=== PATIENT | male | born 1950 | race Caucasian/White ===

== ENCOUNTER 2016-12-12 21:50 | Inpatient (IN) ==
[2016-12-12] MEDS ORDERED: LACTATED RINGERS 500 ML IV STA (22:46)
[2016-12-12] MEDS ORDERED: ONDANSETRON 4 MG/2 ML VIAL IV STA (22:46)
[2016-12-12] MEDS ORDERED: ONDANSETRON 4 MG/2 ML VIAL ONE (22:52)
[2016-12-12 22:54] LABS: Basophils % 0.4 % (0.0-0.8); Eosinophils # 0.1 10*3/uL (0.0-0.87); Eosinophils % 1.2 % (0.00-10.9); Hematocrit 37.9 VOL% (42.0-52.0); Hemoglobin 13.3 GM/DL (14.0-18.0); Immature Granulocytes % 0.4 %; Immature Granulocytes Absolute 0.04 #; Lymphocytes % 47.1 % (21.2-54.2); Mean Corpuscular HGB Conc 35.1 GM/DL (32-36); Mean Corpuscular Hemoglobin 36 PG (27-34); Mean Corpuscular Volume 101.1 FL (87-102); Monocytes # 1.4 10*3/uL (0.11-0.8); Monocytes % 13.1 % (1.7-12.7); Neutrophils % 37.8 % (38.7-73.9); Platelet Count 149 T/CUMM (130-400); Red Blood Count 3.75 MC/CUMM (3.8-5.5); Red Cell Distribution Width 13.2 % (9.3-17.3); White Blood Count 10.5 T/CUMM (4-12)
[2016-12-12 23:00] LABS: PT Patient Result 10.2 SECS; Partial Thromboplastin Time 26.4 SECS (0-40)
[2016-12-12 23:07] LABS: Apearance,Urine CLEAR (Clear); Bilirubin,Urine Negative (Negative); Blood, Urine Negative (Negative); Glucose,Urine (UA) Negative (Negative); Ketones,Urine Negative (Negative); Mucus,Urine Occasional /LPF (Occasional); Nitrite,Urine Negative (Negative); Protein,Urine Negative; RBC,Urine <1 /HPF (0-4); Urine Color Straw (Yellow); Urine Specific Gravity 1.003 (1.001-1.035); Urine Urobilinogen < 2.0 EU/DL (0.2-1.0); WBC,Urine <1 /HPF (0-6)
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
[2016-12-12 23:23] LABS: Barbiturates Screen,Urine Negative (Negative); Benzodiazepines Screen,Urine Negative (Negative); Cannabinoid Screen,Urine Negative (Negative); Opiate Screen,Urine Positive (Negative); Phencyclidine Screen,Urine Negative (Negative)
[2016-12-12 23:30] LABS: Albumin 4.2 G/DL (3.4-5.0); Bilirubin,Total 0.6 MG/DL (0.2-1.0); Calcium 8.4 MG/DL (8.5-10.1); Osmolality,Calculated 279.4 MOS/KG (273-304); Potassium 2.9 MMOL/L (3.5-5.1); Total Protein 6.5 G/DL (6.4-8.3)
[2016-12-12 23:36] LABS: Band Neutrophils 4 % (0-10); Eosinophils 4 % (0-10); Lymphocytes 44 % (20-55); Myelocytes 2 %; Segmented Neutrophils 42 % (50-85)
[2016-12-12 23:37] LABS: Platelet Estimate Adequate; Total Cells Counted 100
[2016-12-13] MEDS ORDERED: THIAMINE INJ 100 MG, FOLIC ACID INJ 1 MG, MAGNESIUM SULF INJ 2 GM, MULTIVITAMIN INJ 10 ... IV ONE (00:10)
[2016-12-13] MEDS ORDERED: POTASSIUM CHLORIDE 20 MEQ TABLET PO STA (00:10)
[2016-12-13] MEDS ORDERED: POTASSIUM CHLORIDE 20 MEQ TABLET PO ONE ×2 (00:35→12:46)
[2016-12-13] MEDS ORDERED: ACETAMINOPHEN 325 MG TABLET PO PRN (00:42)
[2016-12-13] MEDS ORDERED: POLYVINYL ALCOHOL 1.4% OPH SOLN 15 ML BOTTLE LEFT EYE PRN (00:42)
[2016-12-13 00:43] LABS: Troponin I Only < 0.015 NG/ML (0.00-0.045)
[2016-12-13] MEDS ORDERED: ROSUVASTATIN 10 MG TABLET PO SCH ×2 (00:45→09:00)
[2016-12-13] MEDS ORDERED: BISACODYL 5 MG TABLET PO PRN (00:45)
[2016-12-13] MEDS ORDERED: PROMETHAZINE 25 MG/1 ML VIAL IM PRN (00:45)
[2016-12-13] MEDS ORDERED: ONDANSETRON 4 MG/2 ML VIAL IV PRN (00:45)
[2016-12-13] MEDS ORDERED: ALBUTEROL/IPRATROPIUM 3 ML NEB RESP TX PRN (00:45)
[2016-12-13] MEDS ORDERED: MORPHINE 2 MG/1 ML SYRINGE IV PRN (00:45)
[2016-12-13] MEDS ORDERED: LORazepam 2 MG/1 ML VIAL IV PRN (00:48)
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
[2016-12-13] MEDS ORDERED: ALLOPURINOL 300 MG TABLET PO SCH ×2 (01:00→09:00)
[2016-12-13] MEDS ORDERED: PANTOPRAZOLE 40 MG VIAL IV SCH (01:00)
[2016-12-13] MEDS: chlordiazePOXIDE 25 MG CAPSULE PO SCH ×3 (02:18→12:57)
[2016-12-13 05:16] LABS: Basophils % 0.8 % (0.0-0.8); Eosinophils # 0.1 10*3/uL (0.0-0.87); Hematocrit 33.4 VOL% (42.0-52.0); Hemoglobin 11.6 GM/DL (14.0-18.0); Immature Granulocytes % 0.2 %; Immature Granulocytes Absolute 0.01 #; Lymphocytes # 1.4 10*3/uL (1.4-4.0); Mean Corpuscular HGB Conc 34.7 GM/DL (32-36); Mean Corpuscular Hemoglobin 35 PG (27-34); Mean Corpuscular Volume 100.3 FL (87-102); Monocytes # 0.8 10*3/uL (0.11-0.8); Monocytes % 16.5 % (1.7-12.7); Neutrophils # 2.8 10*3/uL (1.4-7.4); Neutrophils % 54.5 % (38.7-73.9); Platelet Count 123 T/CUMM (130-400); Red Blood Count 3.33 MC/CUMM (3.8-5.5); Red Cell Distribution Width 13.2 % (9.3-17.3); White Blood Count 5.1 T/CUMM (4-12)
[2016-12-13 05:45] LABS: Band Neutrophils 2 % (0-10); Hypochromasia 1+; Lymphocytes 24 % (20-55); Ovalocytes Slight; Platelet Estimate Decreased; Segmented Neutrophils 59 % (50-85); Total Cells Counted 100
[2016-12-13 05:59] LABS: Albumin 3.5 G/DL (3.4-5.0); Bilirubin,Total 0.8 MG/DL (0.2-1.0); Calcium 7.9 MG/DL (8.5-10.1); Magnesium 1.8 MG/DL (1.8-2.4); Potassium 3.3 MMOL/L (3.5-5.1); Total Protein 5.7 G/DL (6.4-8.3)
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
[2016-12-13] MEDS ORDERED: RAMIPRIL 2.5 MG CAPSULE PO SCH (09:00)
[2016-12-13] MEDS ORDERED: ASPIRIN 325 MG TABLET PO SCH (09:00)
[2016-12-13] MEDS ORDERED: ATENOLOL 25 MG TABLET PO SCH (09:00)
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
[2016-12-13 18:31] VITALS: BP 136/73
[2016-12-16 23:24] LABS: Ehrlichia Chaffeensis (HME)IgG <1:64 titer (<1:64)
[2016-12-22 16:13] LABS: Q Fever IgM Phase I Screen NEGATIVE (NEGATIVE); Q Fever IgM Phase II Screen NEGATIVE (NEGATIVE)
== END 2016-12-13 18:45 | DRG 101 ==
LOC: EDUNIT# → EDBD → N.ED 21:50 → N.CC 12-13 00:20 → SUATTDRO 12-13 00:45 → N.EDINP 12-13 00:45 → N.CC 12-13 01:17
PROVIDERS: ADMIT Internal Medicine; ATTEND Internal Medicine

== ENCOUNTER 2019-05-07 09:39 | Inpatient (IN) ==
[2019-05-07 11:06] LABS: Basophils % 0.2 % (0.0-0.8); Eosinophils # 0.2 10*3/uL (0.0-0.87); Eosinophils % 1.2 % (0.00-10.9); Hematocrit 32.8 VOL% (42.0-52.0); Hemoglobin 10.9 GM/DL (14.0-18.0); Immature Granulocytes % 0.5 %; Immature Granulocytes Absolute 0.06 #; Lymphocytes # 1.5 10*3/uL (1.4-4.0); Lymphocytes % 11.6 % (21.2-54.2); Mean Corpuscular HGB Conc 33.2 GM/DL (32-36); Mean Corpuscular Volume 105.1 FL (87-102); Mean Platelet Volume 10.9 FL (9.6-12.0); Monocytes % 13.1 % (1.7-12.7); Neutrophils % 73.4 % (38.7-73.9); Platelet Count 134 T/CUMM (130-400); Red Blood Count 3.12 MC/CUMM (3.8-5.5); Red Cell Distribution Width 14.6 % (9.3-17.3); White Blood Count 13.3 T/CUMM (4-12)
[2019-05-07 11:09] LABS: Apearance,Urine CLEAR (Clear); Bilirubin,Urine Negative (Negative); Blood, Urine Negative (Negative); Glucose,Urine (UA) Negative (Negative); Hyaline Casts,Urine 3 /LPF (0-3); Ketones,Urine 5 mg/dL (Negative); Mucus,Urine Occasional /LPF (Occasional); Nitrite,Urine Negative (Negative); Protein,Urine Negative; RBC,Urine 2 /HPF (0-4); Squamous Epithelial Cell,Urine Occasional /HPF (0-10); Urine Color Yellow (Yellow); Urine Specific Gravity 1.018 (1.001-1.035); WBC,Urine 1 /HPF (0-6)
[2019-05-07 11:19] LABS: Barbiturates Screen,Urine Negative (Negative); Benzodiazepines Screen,Urine Negative (Negative); Cannabinoid Screen,Urine Negative (Negative); Opiate Screen,Urine Positive (Negative); Phencyclidine Screen,Urine Negative (Negative)
[2019-05-07 11:33] LABS: Alanine Aminotransferase 21 U/L (16-61); Albumin 3.9 G/DL (3.4-5.0); Alkaline Phosphatase 49 U/L (45-117); Aspartate Amino Transferase 30 U/L (0-37); Blood Urea Nitrogen 30 MG/DL (7-18); Calcium 8.8 MG/DL (8.5-10.1); Estimated Glom Filtration Rate 68 ML/MIN; Glucose 73 MG/DL (74-106); Total Protein 6.7 G/DL (6.4-8.3)
[2019-05-07] MEDS ORDERED: ONDANSETRON 4 MG/2 ML VIAL IV PRN (13:10)
[2019-05-07] MEDS ORDERED: LORazepam 2 MG/1 ML VIAL IV STA (13:39)
[2019-05-07] MEDS ORDERED: LORazepam 2 MG/1 ML VIAL ONE (13:46)
[2019-05-07] MEDS ORDERED: ZIPRASIDONE 20 MG/1 ML VIAL IM STA (14:30)
[2019-05-07] MEDS ORDERED: ZIPRASIDONE 20 MG/1 ML VIAL IM PRN (17:37)
[2019-05-07] MEDS: SODIUM CHLORIDE 0.9% 1,000 ML IV SCH (18:10)
[2019-05-07] MEDS: PIPERACILLIN/TAZOBACTAM 3,375 MG in SODIUM CHLORIDE 0.9% 100 ML IV SCH (18:10)
[2019-05-07] MEDS: ENOXAPARIN 40 MG/0.4 ML SYRINGE SUBCUT SCH (18:11)
[2019-05-07] MEDS ORDERED: THIAMINE 200 MG/2 ML VIAL IV SCH (18:30)
[2019-05-07 18:58] LABS: Folate 11.5 NG/ML (5.4-24.0)
[2019-05-07] MEDS: FOLIC ACID INJ 1 MG in SYRINGE 1 EACH IV SCH (22:39)
[2019-05-08] MEDS: ZIPRASIDONE 20 MG/1 ML VIAL IM PRN ×2 (00:20→15:12)
[2019-05-08] MEDS: PIPERACILLIN/TAZOBACTAM 3,375 MG in SODIUM CHLORIDE 0.9% 100 ML IV SCH (02:20)
[2019-05-08 05:32] LABS: Basophils % 0.2 % (0.0-0.8); Eosinophils # 0.1 10*3/uL (0.0-0.87); Eosinophils % 1.1 % (0.00-10.9); Hematocrit 29.2 VOL% (42.0-52.0); Hemoglobin 9.7 GM/DL (14.0-18.0); Immature Granulocytes % 0.7 %; Immature Granulocytes Absolute 0.06 #; Lymphocytes # 0.9 10*3/uL (1.4-4.0); Lymphocytes % 11.1 % (21.2-54.2); Mean Corpuscular HGB Conc 33.2 GM/DL (32-36); Mean Platelet Volume 10.4 FL (9.6-12.0); Monocytes % 14.3 % (1.7-12.7); Neutrophils % 72.6 % (38.7-73.9); Platelet Count 118 T/CUMM (130-400); Red Blood Count 2.78 MC/CUMM (3.8-5.5); Red Cell Distribution Width 14.6 % (9.3-17.3); White Blood Count 8.4 T/CUMM (4-12)
[2019-05-08 05:53] LABS: Albumin 3.2 G/DL (3.4-5.0); Bilirubin,Total 1.1 MG/DL (0.2-1.0); Calcium 8.6 MG/DL (8.5-10.1); Osmolality,Calculated 283.3 MOS/KG (273-304); Risk Ratio 1.88; Thyroid Stimulating Hormone 1.53 uIU/ml (0.358-3.74); Total Protein 5.9 G/DL (6.4-8.3)
[2019-05-08] MEDS: ATENOLOL 25 MG TABLET PO SCH (08:53)
[2019-05-08] MEDS: ALLOPURINOL 300 MG TABLET PO SCH (08:53)
[2019-05-08] MEDS: ROSUVASTATIN 10 MG TABLET PO SCH (08:53)
[2019-05-08] MEDS: ASPIRIN 325 MG TABLET PO SCH (08:53)
[2019-05-08] MEDS: FOLIC ACID INJ 1 MG in SYRINGE 1 EACH IV SCH (08:54)
[2019-05-08] MEDS: PANTOPRAZOLE 40 MG TABLET PO SCH (08:54)
[2019-05-08] MEDS: LORATADINE 10 MG TABLET PO SCH (08:54)
[2019-05-08] MEDS: THIAMINE INJ 500 MG in SODIUM CHLORIDE 0.9% 100 ML IV SCH ×2 (08:55→16:52)
[2019-05-08] MEDS ORDERED: FOLIC ACID INJ 1 MG in SYRINGE 1 EACH IV SCH (09:00)
[2019-05-08] MEDS: ENOXAPARIN 40 MG/0.4 ML SYRINGE SUBCUT SCH (13:44)
[2019-05-08] MEDS: SODIUM CHLORIDE 0.9% 1,000 ML IV SCH ×2 (13:45→22:20)
[2019-05-09] MEDS: THIAMINE INJ 500 MG in SODIUM CHLORIDE 0.9% 100 ML IV SCH ×2 (01:28→08:53)
[2019-05-09 06:41] LABS: Basophils % 0.3 % (0.0-0.8); Eosinophils # 0.1 10*3/uL (0.0-0.87); Eosinophils % 1.1 % (0.00-10.9); Hematocrit 27.3 VOL% (42.0-52.0); Hemoglobin 9.2 GM/DL (14.0-18.0); Immature Granulocytes % 0.8 %; Immature Granulocytes Absolute 0.05 #; Lymphocytes # 0.9 10*3/uL (1.4-4.0); Mean Corpuscular HGB Conc 33.7 GM/DL (32-36); Mean Corpuscular Volume 104.6 FL (87-102); Mean Platelet Volume 10.1 FL (9.6-12.0); Monocytes % 18.2 % (1.7-12.7); Neutrophils % 64.6 % (38.7-73.9); Platelet Count 107 T/CUMM (130-400); Red Blood Count 2.61 MC/CUMM (3.8-5.5); Red Cell Distribution Width 14.7 % (9.3-17.3); White Blood Count 6.2 T/CUMM (4-12)
[2019-05-09 07:05] LABS: Band Neutrophils 1 % (0-10); Hypochromasia Slight; Lymphocytes 9 % (20-55); Platelet Estimate Decreased; Segmented Neutrophils 84 % (50-85); Total Cells Counted 100
[2019-05-09 07:09] LABS: Albumin 2.9 G/DL (3.4-5.0); Calcium 8.3 MG/DL (8.5-10.1); Osmolality,Calculated 282.1 MOS/KG (273-304); Total Protein 5.6 G/DL (6.4-8.3)
[2019-05-09] MEDS: ASPIRIN 325 MG TABLET PO SCH (08:46)
[2019-05-09] MEDS: PANTOPRAZOLE 40 MG TABLET PO SCH (08:47)
[2019-05-09] MEDS: ROSUVASTATIN 10 MG TABLET PO SCH (08:47)
[2019-05-09] MEDS: ALLOPURINOL 300 MG TABLET PO SCH (08:47)
[2019-05-09] MEDS: LORATADINE 10 MG TABLET PO SCH (08:47)
[2019-05-09] MEDS: ATENOLOL 25 MG TABLET PO SCH (08:47)
[2019-05-09] MEDS: ENOXAPARIN 40 MG/0.4 ML SYRINGE SUBCUT SCH (08:47)
[2019-05-09] MEDS: SODIUM CHLORIDE 0.9% 1,000 ML IV SCH (08:59)
[2019-05-09] MEDS ORDERED: POTASSIUM CHLORIDE 20 MEQ TABLET PO ONE (09:00)
[2019-05-09] MEDS ORDERED: FOLIC ACID 1 MG TABLET PO SCH (09:00)
[2019-05-09 11:26] VITALS: BP 143/74
[2019-05-12 19:05] LABS: Pyridoxal 5-Phosphate (PLP), P 17 mcg/L (5-50)
== END 2019-05-09 13:06 | DRG 641 ==
LOC: N.ED 09:39 → N.EDINP 13:10 → N.2E 15:40
PROVIDERS: ADMIT Internal Medicine; ATTEND Internal Medicine